=== PATIENT | female | born 1960 | race African-American/Black ===

== ENCOUNTER 2016-07-25 12:33 | Emergency (ER) | payer OTHER ==
[~2016-07-25] VITALS: Ht 152.4 cm; Wt 77.1 kg
[~2016-07-25 12:33] MED LIST: AMLO10TA4 PO; CLON1PAT3 TD; FURO-68 PO; HYDR-971 PO; LISI10TA2 PO; MELO-150 PO; METO25TA4 PO; ONDA4TAB7 PO; POTA10TA31 PO; PROAIR HFA8.5 GM INH
--- NOTE | 2016-07-25 14:14 | RAD ---
EXAM: Chest, single view. HISTORY: Shortness of air. COMPARISON: None. FINDINGS: A frontal view of the chest obtained. There is no infiltrate, effusion or pneumothorax. The heart is normal in size. IMPRESSION: No acute pulmonary finding.
[2016-07-25] MEDS ORDERED: IPRATRPIUM/ALBUTEROL 0.5/2.5MG 3 ML NEBU. NEB ONE (14:30)
[2016-07-25 14:40] VITALS: BP 164/90
[2016-07-25] MEDS ORDERED: PRED50TA PO (14:59)
[2016-07-25] MEDS ORDERED: PROAIR HFA8.5 GM INH (14:59)
--- NOTE | 2016-07-25 14:59 | PHYS DOC ---
Past Medical History Past Medical History: Hypertension, Stroke, Other Additional Past Medical Histor: aneurysm Past Surgical History: Hysterectomy Alcohol Use: None Drug Use: None Adult General Chief Complaint Chief Complaint: COUGH HPI HPI This is a very pleasant 56-year-old female is had ongoing cough for the last several days despite finishing a course of Z-Marc. Patient does have history of asthma but does not use an inhaler at home. She states her cough has been continuing for the last several weeks. She denies any significant chest pain. She denies any fever or chills. Patient is speaking in complete sentences and in no acute respiratory distress whatsoever. Review of Systems Review of Systems Constitutional: Denies fever or chills [] Eyes: Denies change in visual acuity, redness, or eye pain [] HENT: Denies nasal congestion or sore throat [] Respiratory: Has cough, denies shortness of breath [] Cardiovascular: No additional information not addressed in HPI [] GI: Denies abdominal pain, nausea, vomiting, bloody stools or diarrhea [] : Denies dysuria or hematuria [] Musculoskeletal: Denies back pain or joint pain [] Integument: Denies rash or skin lesions [] Neurologic: Denies headache, focal weakness or sensory changes [] Endocrine: Denies polyuria or polydipsia [] Current Medications Current Medications Current Medications Medications (Trade) Dose Ordered Sig/Ashley Start Time Stop Time Status Last Admin Dose Admin Albuterol/ Ipratropium (Duoneb) 3 ml 1X ONCE 07/25/16 14:30 07/25/16 14:31 DC 07/25/16 14:33 3 ML Allergies Allergies Allergies Coded Allergies Type Severity Reaction Last Updated Verified Sulfa (Sulfonamide Antibiotics) Allergy Intermediate Rash 02/17/16 Yes Physical Exam Physical Exam Constitutional: Well developed, well nourished, no acute distress, non-toxic appearance. [] HENT: Normocephalic, atraumatic, bilateral external ears normal, oropharynx moist, no oral exudates, nose normal. [] Eyes: PERRLA, EOMI, conjunctiva normal, no discharge. [] Neck: Normal range of motion, no tenderness, supple, no stridor. [] Cardiovascular:Heart rate regular rhythm, no murmur [] Lungs & Thorax: Bilateral breath sounds clear to auscultation [] Abdomen: Bowel sounds normal, soft, no tenderness, no masses, no pulsatile masses. [] Skin: Warm, dry, no erythema, no rash. [] Back: No tenderness, no CVA tenderness. [] Extremities: No tenderness, no cyanosis, no clubbing, ROM intact, no edema. [] Neurologic: Alert and oriented X 3, normal motor function, normal sensory function, no focal deficits noted. [] Psychologic: Affect normal, judgement normal, mood normal. [] Current Patient Data Vital Signs Vital Signs Date Time Temp Pulse Resp B/P Pulse Ox O2 Delivery O2 Flow Rate FiO2 07/25/16 14:40 76 13 164/90 100 Room Air 07/25/16 12:37 98.2 98.2 EKG EKG EKG as interpreted by me shows a sinus rhythm with rate of 80 bpm. There is a leftward axis. There is slight prolonged QT interval but no other acute findings are seen. There is a T-wave inversion to lead 3 and aVF. Radiology/Procedures Radiology/Procedures Portable view of the chest as interpreted by the radiologist did not reveal any acute cardiopulmonary process. Course & Med Decision Making Course & Med Decision Making Pertinent Labs and Imaging studies reviewed. (See chart for details) This 56-year-old female was given a breathing treatment and had a chest x-ray and EKG that were essentially unremarkable. I believe her symptoms are likely related to an ongoing bronchitis. A prescription for prednisone and a pro-air inhaler were provided. She will follow closely with her primary care doctor next several days with strict instruction return if she develops any worsening of her breathing, chest pain or any other symptoms. Dragon Disclaimer Dragon Disclaimer This electronic medical record was generated, in whole or in part, using a voice recognition dictation system. Departure Departure Impression: Primary Impression: Cough Additional Impression: Bronchitis Disposition: 01 HOME, SELF-CARE Admitting Physician: Other Condition: STABLE Referrals: DANIELLE SANCHEZ MD (PCP) Patient Instructions: Cough, Adult, [id number] Additional Instructions: Please take your prescriptions as prescribed. Return to the ER if you develop any worsening of your symptoms. Follow up closely with your primary doctor in the next 2-3 days for your symptoms. Scripts Albuterol Sulfate (Proair Hfa Inhaler)8.5 Gm [id number].[id number] Puff INH PRN Q6HRS PRN SHORTNESS OF BREATH #1 INHALER Ref 0 Prov:GLEN CARL DO 07/25/16 Prednisone 50 Mg [id number] Mg PO DAILY #5 TAB Prov:GLEN CARL DO 07/25/16 Problem Qualifiers GLEN CARL DO Jul 25, 2016 14:59
--- NOTE | 2016-07-26 07:48 | EKG ---
[facility] [address] [place] [address] Test Date: 2016-07-25 Test Time: 12:57:02 Pat Name: GORGE RENTERIA Department: Room: Gender: F Polisher Dial: : 1960 Requested By: GLEN CARL Order Number: [id number] Reading MD: Jose Jaramillo Measurements Intervals [place] Rate: 80 P: -1 ME: 134 QRS: -4 QRSD: 82 T: -4 QT: 408 QTc: 474 Interpretive Statements SINUS RHYTHM LEFTWARD AXIS PROLONGED QT NO SPECIFIC ECG ABNORMALITIES Electronically Signed On 08-01-2016 17:00:01 CDT by Jose Jaramillo
== END 2016-07-25 15:19 | disposition home or self-care (01) ==
LOC: ER 12:33
DX: J40 Bronchitis, not specified as acute or chronic (principal); I10 Essential (primary) hypertension; J45.909 Unspecified asthma, uncomplicated; Z86.73 Personal history of transient ischemic attack (TIA), and cerebral infarction without residual deficits; Z90.710 Acquired absence of both cervix and uterus; Z88.2 Allergy status to sulfonamides
CPT/HCPCS: 71010; 93005; 94250; 94640; 94760; 99284; J7620

== ENCOUNTER 2017-02-20 19:08 | Emergency (ER) | payer OTHER ==
[~2017-02-20] VITALS: Ht 149.9 cm; Wt 79.8 kg
[~2017-02-20 19:08] MED LIST changes: -MELO-150 PO; +MELO15TA23 PO; +PRED50TA PO
[2017-02-20 19:10] VITALS: BP 162/85
[2017-02-20] MEDS ORDERED: NAPR-695 PO (19:34)
[2017-02-20] MEDS ORDERED: HYDR-971 PO (19:34)
[2017-02-20] MEDS ORDERED: CYCL10TA2 PO (19:34)
--- NOTE | 2017-02-20 19:35 | PHYS DOC ---
Past Medical History Past Medical History: Asthma, Hypertension, Stroke, Other Additional Past Medical Histor: aneurysm Past Surgical History: Hysterectomy Alcohol Use: None Drug Use: None Adult General Chief Complaint Chief Complaint: PAIN CONTROL HPI HPI Patient is a 56 year old female with a history of hypertension, asthma, who presents with exacerbation of chronic sciatic pain. Patient states since Monday she's had a 9 out of 10 sharp right low back pain radiating to the right lower extremity. Patient denies any injury. Denies any loss of bowel bladder function, denies any numbness or tingling to bilateral lower extremities. Patient states she has been seen in our ED before and was given a pain shot that stopped her neck from having spasms and would like the same shot. I looked back in her charts. I could not find any visit that documented patient had a pain shot that stopped her muscle spasms in her neck. When I inquired about this again. Patient changed her story stating she was seen at [facility] where she got the shot, she is also driving herself. Review of Systems Review of Systems Constitutional: Denies fever or chills [] GI: Denies abdominal pain, nausea, vomiting, bloody stools or diarrhea [] : Denies dysuria or hematuria [] Musculoskeletal: Right low back pain radiating into the right lower extremity. Integument: Denies rash or skin lesions [] Neurologic: Denies headache, focal weakness or sensory changes [] Current Medications Current Medications Current Medications Medications (Trade) Dose Ordered Sig/Ashley Start Time Stop Time Status Last Admin Dose Admin Ketorolac Tromethamine (Toradol Im) 60 mg 1X ONCE 02/20/17 20:00 02/20/17 20:01 Allergies Allergies Allergies Coded Allergies Type Severity Reaction Last Updated Verified Sulfa (Sulfonamide Antibiotics) Allergy Intermediate Rash 02/17/16 Yes Physical Exam Physical Exam Constitutional: Well developed, well nourished, no acute distress, non-toxic appearance. [] Abdomen: Bowel sounds normal, soft, no tenderness, no masses, no pulsatile masses. [] Skin: Warm, dry, no erythema, no rash. [] Back: No tenderness, no CVA tenderness. [] Extremities: Tenderness on palpation of the right SI joint, no midline lumbar spine tenderness, no cyanosis, no clubbing, ROM intact, no edema. [] Neurologic: Alert and oriented X 3, normal motor function, normal sensory function, no focal deficits noted. [] Psychologic: Affect normal, judgement normal, mood normal. [] Current Patient Data Vital Signs Vital Signs Date Time Temp Pulse Resp B/P (MAP) Pulse Ox O2 Delivery O2 Flow Rate FiO2 02/20/17 19:10 98.3 80 18 100 Room Air 98.3 EKG EKG [] Radiology/Procedures Radiology/Procedures [] Course & Med Decision Making Course & Med Decision Making Pertinent Labs and Imaging studies reviewed. (See chart for details) Patient is in the ED with exacerbation of sciatic pain. She was given Toradol injection in the ED. The see history of present illness. She will be discharged with naproxen and cyclobenzaprine. I gave her 6 tablets of [place] to use for severe pain. Heat recommended to the area. Follow-up with PCP in 1-2 weeks. Dragon Disclaimer Dragon Disclaimer This electronic medical record was generated, in whole or in part, using a voice recognition dictation system. Departure Departure Impression: Primary Impression: Right sciatic nerve pain Disposition: HOME, SELF-CARE Condition: STABLE Referrals: DANIELLE SANCHEZ MD (PCP) follow up in the next seven days Patient Instructions: Sciatica, [id number] Additional Instructions: You were seen for sciatic pain. You can apply heat to the affected area. Take the prescribed medicines as needed for pain. Do not drive or operate machinery on the muscle relaxer or the pain medication specifically [place]. Follow-up with your doctor in the course of this week. Scripts Naproxen (NAPROXEN) 375 Mg Tablet 1 TAB PO BID, #20 TAB 0 Refills Prov: MAGAN BAUTISTA APRN 02/20/17 Cyclobenzaprine Hcl (CYCLOBENZAPRINE HCL) 10 Mg Tablet 1 TAB PO TID, #30 TAB Prov: MAGAN BAUTISTA APRN 02/20/17 Hydrocodone/Apap 5-325 (NORCO 5-325 TABLET) 1 Each Tablet 1-2 TAB PO Q4-6HRS, #6 TAB Prov: MAGAN BAUTISTA APRN 02/20/17 MAGAN BAUTISTA APRN Feb 20, 2017 19:34
[2017-02-20] MEDS ORDERED: KETOROLAC 60 MG/2 ML INJ. IM ONE (20:00)
== END 2017-02-20 20:00 | disposition home or self-care (01) ==
LOC: ER 19:08
DX: M54.41 Lumbago with sciatica, right side (principal); G89.29 Other chronic pain; I10 Essential (primary) hypertension; J45.909 Unspecified asthma, uncomplicated; Z86.73 Personal history of transient ischemic attack (TIA), and cerebral infarction without residual deficits; Z90.710 Acquired absence of both cervix and uterus; Z88.2 Allergy status to sulfonamides
CPT/HCPCS: 96372; 99283; J1885

== ENCOUNTER 2017-07-11 22:09 | Emergency (ER) | payer OTHER ==
[2017-07-11] MEDS: KETOROLAC 30 MG/ML INJ. IM (23:47)
== END 2017-07-12 00:01 | disposition home or self-care (01) ==
LOC: ER 07-12 00:01
DX: M54.41 Lumbago with sciatica, right side (principal); M25.562 Pain in left knee; I10 Essential (primary) hypertension; J45.909 Unspecified asthma, uncomplicated; Z86.73 Personal history of transient ischemic attack (TIA), and cerebral infarction without residual deficits; Z90.710 Acquired absence of both cervix and uterus; Z88.2 Allergy status to sulfonamides
CPT/HCPCS: 96372; 99283-25; J1885

== ENCOUNTER → 2017-09-06 | Outpatient (CLI) | payer OTHER | END | disposition home or self-care (01) | LOC: MAMMO 08:46 | DX: Z12.31 Encounter for screening mammogram for malignant neoplasm of breast (principal) | CPT/HCPCS: 77067 ==

== ENCOUNTER → 2018-06-01 | Outpatient (CLI) | payer OTHER ==
[2017-07-11 23:22] VITALS: BP 155/82
[~2018-06-01] MED LIST changes: +ALBU2.5V8 INH; +CYCL10TA2 PO; +HYDR-3164 PO; -HYDR-971 PO; +NAPR-683 PO; +NAPR-695 PO; -PROAIR HFA8.5 GM INH
--- NOTE | 2018-06-01 13:17 | RAD ---
Renal ultrasound dated 06/01/2018. No comparison available. Clinical data indication: Renal cyst. FINDINGS: Right kidney measures 10.5 cm in length. Left kidney measures 10.6 cm in length. No hydronephrosis. There is a hypoechoic focus at the right kidney midpole laterally that measures 2.6 cm maximum dimension, well-defined within the through transmission. Urinary bladder is nondistended and not well evaluated. Ureteral jets are visualized. IMPRESSION: 1. No acute sonographic abnormality. No evidence of hydronephrosis. 2. Small right renal cyst. Electronically signed by: Maury Reed MD (06/01/2018 1:12 PM) [id number]
== END | disposition home or self-care (01) ==
LOC: US 09:16
PROVIDERS: ATTEND Family Medicine
DX: N28.1 Cyst of kidney, acquired (principal)
CPT/HCPCS: 76770